=== PATIENT | male | born 1965 | race Caucasian/White ===

== ENCOUNTER 2020-03-01 15:18 | Emergency (ER) | payer OTHER ==
[2020-03-01 17:40] LABS: HEMOGLOBIN 18.1 gm/dl (14.0-17.5); RED BLOOD COUNT 6.43 M/UL (4.20-5.50); WHITE BLOOD COUNT 10.9 K/UL (4.5-11.0)
[2020-03-01 17:53] LABS: BUN/CREATININE RATIO 18 (0-10)
[2020-03-01] MEDS ORDERED: ZOFRAN4 MG PO (19:08)
[2020-03-01] MEDS ORDERED: ANTIVERT 12.512.5 MG PO (19:08)
== END 2020-03-01 19:28 | disposition home or self-care (01) ==
LOC: ER1 15:18
PROVIDERS: Preventive Medicine Occupational Medicine
DX: R42 Dizziness and giddiness (principal); I10 Essential (primary) hypertension
CPT/HCPCS: 70450; 80048; 85025; 96374; 99284; J2405; J7030